=== PATIENT | female | born 1960 | race Caucasian/White ===

== ENCOUNTER 2016-06-08 20:28 | Inpatient (IN) | payer MEDICARE, OTHER ==
[~2016-06-08] VITALS: Ht 154.9 cm; Wt 78.9 kg
[2016-06-08] MEDS ORDERED: ZYLOPRIM 100 M100 MG PO (22:06)
[2016-06-08] MEDS ORDERED: COREG 3.125M3.125 MG PO (22:07)
[2016-06-08] MEDS ORDERED: ELAVIL 50 MG TA50 MG PO (22:07)
[2016-06-08] MEDS ORDERED: ASPIRIN325 MG PO (22:07)
[2016-06-08] MEDS ORDERED: DEXILANT60 MG PO (22:09)
[2016-06-08] MEDS ORDERED: DICLOFENAC SODI50 MG PO (22:09)
[2016-06-08] MEDS ORDERED: LASIX 40 MG TAB40 MG PO (22:10)
[2016-06-08] MEDS ORDERED: PROTONIX 40 MG40 M1 PO (22:15)
[2016-06-08] MEDS ORDERED: NITROSTAT0.4 MG SL (22:15)
[2016-06-08] MEDS ORDERED: K-DUR TAB 10 M10 MEQ PO (22:16)
[2016-06-08] MEDS ORDERED: KLOR-CON M2020 MEQ PO (22:16)
[2016-06-08] MEDS ORDERED: ZOLOFT100 MG PO (22:17)
[2016-06-08] MEDS ORDERED: ZANTAC 150 MG150 MG PO (22:17)
[2016-06-08] MEDS ORDERED: ZOCOR40 MG PO (22:17)
[2016-06-08] MEDS ORDERED: DIOVAN 80 MG TA80 MG PO (22:18)
[2016-06-08 23:24] LABS: HEMOGLOBIN 9.3 gm/dl (12.3-15.3); RED BLOOD COUNT 3.24 M/UL (4.00-5.10); WHITE BLOOD COUNT 13.3 K/UL (4.5-11.0)
[2016-06-09 04:03] LABS: HEMOGLOBIN 9.6 gm/dl (12.3-15.3); RED BLOOD COUNT 3.32 M/UL (4.00-5.10); WHITE BLOOD COUNT 13.8 K/UL (4.5-11.0)
[2016-06-10 03:39] LABS: HEMOGLOBIN 10.1 gm/dl (12.3-15.3); RED BLOOD COUNT 3.51 M/UL (4.00-5.10); WHITE BLOOD COUNT 13.3 K/UL (4.5-11.0)
[2016-06-12 04:18] LABS: HEMOGLOBIN 9.5 gm/dl (12.3-15.3); RED BLOOD COUNT 3.34 M/UL (4.00-5.10); WHITE BLOOD COUNT 13.4 K/UL (4.5-11.0)
[2016-06-12 04:38] LABS: BUN/CREATININE RATIO 13 (0-10)
[2016-06-12] MEDS ORDERED: LISINOPRIL2.5 MG PO (14:28)
[2016-06-12] MEDS ORDERED: LASIX20 MG PO (14:29)
[2016-06-12] MEDS ORDERED: POTASSIUM CHLO10 MEQ PO (14:30)
[2016-06-12] MEDS ORDERED: ASPIRIN81 MG PO (14:34)
== END 2016-06-12 15:35 | disposition home or self-care (01) | DRG 682 ==
LOC: MED SURG 4 20:34 → CCU 21:32 → M/S 21:32
PROVIDERS: ADMIT Family Medicine
DX: N17.9 Acute kidney failure, unspecified (principal); R57.0 Cardiogenic shock; R57.1 Hypovolemic shock; E87.2 Acidosis; R65.10 Systemic inflammatory response syndrome (SIRS) of non-infectious origin without acute organ dysfunction; A04.7 Enterocolitis due to Clostridium difficile; I50.22 Chronic systolic (congestive) heart failure; I25.10 Atherosclerotic heart disease of native coronary artery without angina pectoris; I25.5 Ischemic cardiomyopathy; M10.9 Gout, unspecified; K21.9 Gastro-esophageal reflux disease without esophagitis; M19.90 Unspecified osteoarthritis, unspecified site; I10 Essential (primary) hypertension; E78.5 Hyperlipidemia, unspecified; F32.9 Major depressive disorder, single episode, unspecified; F41.9 Anxiety disorder, unspecified; G89.29 Other chronic pain; M79.7 Fibromyalgia; R73.9 Hyperglycemia, unspecified; K66.0 Peritoneal adhesions (postprocedural) (postinfection); K59.09 Other constipation; E87.6 Hypokalemia; I95.2 Hypotension due to drugs; T44.7X5A Adverse effect of beta-adrenoreceptor antagonists, initial encounter; Z90.710 Acquired absence of both cervix and uterus; Z82.49 Family history of ischemic heart disease and other diseases of the circulatory system
CPT/HCPCS: ECHO; 36415; 71010; 74000; 80048; 80053; 80202; 82550; 82553; 83036; 83605; 83880; 84132; 84439; 84443; 84484; 85025; 85027; 86140; 87040; 87086; 93005; 93306; J0696; J3370; J7030; J7050; J7070; Q0162

== ENCOUNTER 2021-04-04 15:17 | Inpatient (IN) | payer MEDICARE, OTHER ==
[~2021-04-04] VITALS: Ht 152.4 cm; Wt 54.1 kg
[~2021-04-04 15:17] MED LIST: ASPIRIN325 MG PO; ASPIRIN81 MG PO; COREG 12.5MG12.5 MG PO; DEXILANT60 MG PO; DICLOFENAC SODI50 MG PO; DIOVAN 80 MG TA80 MG PO; ELAVIL 50 MG TA50 MG PO; K-DUR TAB 10 M10 MEQ PO; KLOR-CON M2020 MEQ PO; LASIX 40 MG TAB40 MG PO; LASIX40 MG PO; LISINOPRIL2.5 MG PO; NITROSTAT0.4 MG SL; POTASSIUM CHLO10 MEQ PO; PROTONIX 40 MG40 M1 PO; ZANTAC 150 MG150 MG PO; ZOCOR40 MG PO; ZOLOFT100 MG PO; ZYLOPRIM 100 M100 MG PO
[2021-04-04 15:47] LABS: HEMOGLOBIN 11.6 gm/dl (12.3-15.3); RED BLOOD COUNT 4.48 M/UL (4.00-5.10)
[2021-04-04 16:11] LABS: BUN/CREATININE RATIO 15 (0-10)
[2021-04-05 03:16] LABS: HEMOGLOBIN 10.3 gm/dl (12.3-15.3)
[2021-04-05 03:33] LABS: RED BLOOD COUNT 4.02 M/UL (4.00-5.10); WHITE BLOOD COUNT 7.9 K/UL (4.5-11.0)
[2021-04-05 03:46] LABS: BUN/CREATININE RATIO 18 (0-10)
[2021-04-05] MEDS ORDERED: CYCLOBENZAPRINE10 MG PO (11:17)
[2021-04-05] MEDS ORDERED: BUSPAR 10MG10 MG PO (11:17)
[2021-04-05] MEDS ORDERED: CRESTOR20 MG PO (11:18)
[2021-04-05] MEDS ORDERED: XARELTO20 MG PO (11:18)
[2021-04-05] MEDS ORDERED: TRAZODONE HCL50 MG PO (11:18)
[2021-04-05] MEDS ORDERED: ZOFRAN ODT 4 MG4 MG PO (11:19)
[2021-04-05] MEDS ORDERED: ENTRESTO 49 MG1 EACH PO (11:19)
[2021-04-05] MEDS ORDERED: ALBUTEROL2.5 MG/3 M INH (11:20)
[2021-04-05] MEDS ORDERED: RISAQUAD PO (11:20)
[2021-04-06 03:22] LABS: RED BLOOD COUNT 3.95 M/UL (4.00-5.10)
[2021-04-06 03:28] LABS: WHITE BLOOD COUNT 10.1 K/UL (4.5-11.0)
[2021-04-07 02:47] LABS: HEMOGLOBIN 10.6 gm/dl (12.3-15.3); RED BLOOD COUNT 4.18 M/UL (4.00-5.10)
[2021-04-07 03:20] LABS: BUN/CREATININE RATIO 23 (0-10)
[2021-04-07 15:10] LABS: LDH, BODY FLUID 145 U/L; TOTAL PROTEIN, BODY FLUID 2.8 gm/dL
[2021-04-07 15:18] LABS: BODY FLUID SOURCE PLEURAL
[2021-04-07 15:19] LABS: MONONUCLEAR CELLS 85.1 (75-100); POLYMORPHONUCLEAR % 14.9 (0-25); RBC (AUTOMATED) 84800 (0-100000); WBC (AUTOMATED) 261 (0-500)
[2021-04-08 03:21] LABS: HEMOGLOBIN 10.6 gm/dl (12.3-15.3); RED BLOOD COUNT 4.15 M/UL (4.00-5.10); WHITE BLOOD COUNT 5.7 K/UL (4.5-11.0)
[2021-04-08 03:55] LABS: BUN/CREATININE RATIO 23 (0-10)
[2021-04-08] MEDS ORDERED: OMNICEF 300 MG300 MG PO (15:50)
[2021-04-08 22:03] LABS: ACINETOBACTER BAUMANNII Not Detected (Negative); CANDIDA ALBICANS Not Detected (Negative); CANDIDA KRUSEI Not Detected (Negative); CANDIDA TROPICALIS Not Detected (Negative); ENTEROCOCCUS Not Detected (Negative); ESCHERICHIA COLI Not Detected (Negative); HAEMOPHILUS INFLUENZAE Not Detected (Negative); KLEBSIELLA OXYTOCA Not Detected (Negative); KLEBSIELLA PNEUMONIAE Not Detected (Negative); KPC-CARBAPENEM-RESISTANCE GENE Not Detected (Negative); PROTEUS Not Detected (Negative); PSEUDOMONAS AERUGINOSA Not Detected (Negative); SERRATIA MARCESANS Not Detected (Negative); STAPHYLOCOCCUS AUREUS Not Detected (Negative); STREP AGALACTIAE (GROUP B) Not Detected (Negative); STREP PYOGENES (GROUP A) Not Detected (Negative); STREPTOCOCCUS Not Detected (Negative); mecA (METHICILLIN RESIST GENE Not Detected (Negative); vanA/B (VANCOMYCIN RESIST GENE Not Detected (Negative)
[2021-04-09 03:11] LABS: STAPHYLOCOCCUS DETECTED (Negative)
== END 2021-04-08 17:00 | disposition home or self-care (01) | DRG 871 ==
LOC: ER1 15:17 → PROG CARE 19:05 → CDU 19:05 → PROG CARE 04-05 22:53
PROVIDERS: Emergency Medicine; Family Medicine; Internal Medicine; ADMIT Internal Medicine
PROC: 0W9B3ZZ Drainage of Left Pleural Cavity, Percutaneous Approach (ICD-10-PCS; principal; 2021-04-07)
DX: A41.9 Sepsis, unspecified organism (principal); I50.23 Acute on chronic systolic (congestive) heart failure; J18.9 Pneumonia, unspecified organism; J96.01 Acute respiratory failure with hypoxia; G93.41 Metabolic encephalopathy; E87.2 Acidosis; I48.20 Chronic atrial fibrillation, unspecified; I48.92 Unspecified atrial flutter; Z20.822 Contact with and (suspected) exposure to COVID-19; K21.9 Gastro-esophageal reflux disease without esophagitis; F32.A Depression, unspecified; M19.91 Primary osteoarthritis, unspecified site; M54.9 Dorsalgia, unspecified; R73.9 Hyperglycemia, unspecified; F41.9 Anxiety disorder, unspecified; M79.7 Fibromyalgia; G89.29 Other chronic pain; I25.10 Atherosclerotic heart disease of native coronary artery without angina pectoris; I11.0 Hypertensive heart disease with heart failure; R56.9 Unspecified convulsions; R65.20 Severe sepsis without septic shock; I25.5 Ischemic cardiomyopathy; E78.5 Hyperlipidemia, unspecified; R91.8 Other nonspecific abnormal finding of lung field; Z95.5 Presence of coronary angioplasty implant and graft; Z95.0 Presence of cardiac pacemaker; Z95.810 Presence of automatic (implantable) cardiac defibrillator; Z90.49 Acquired absence of other specified parts of digestive tract; Z90.710 Acquired absence of both cervix and uterus; Z98.890 Other specified postprocedural states; Z82.49 Family history of ischemic heart disease and other diseases of the circulatory system; Z80.3 Family history of malignant neoplasm of breast; Z83.6 Family history of other diseases of the respiratory system; Z79.899 Other long term (current) drug therapy; I25.2 Old myocardial infarction; Z79.82 Long term (current) use of aspirin; Z79.01 Long term (current) use of anticoagulants
CPT/HCPCS: ECHO; 36415; 36600; 70450; 70496; 70498; 71045; 71275; 74018; 80053; 80307; 81001; 82009; 82140; 82550; 82553; 82803; 82945; 82962; 83605; 83615; 83735; 83874; 83880; 83986; 84100; 84157; 84439; 84443; 84484; 85025; 85027; 86140; 87040; 87070; 87077; 87150; 87186; 87205; 89051; 93005; 93306; 94760; 96372; 96374; 96375; 96376; 99285; G0480; J0456; J0696; J1160; J1650; J1940; J2060; J2310; J2405; J2550; J7030; J7070; Q9965; Q9967; U0002

== ENCOUNTER → 2021-05-12 | Outpatient (CLI) | payer MEDICARE, OTHER ==
[~2021-05-12] MED LIST changes: +ALBUTEROL2.5 MG/3 M INH; +BUSPAR 10MG10 MG PO; +CRESTOR20 MG PO; +CYCLOBENZAPRINE10 MG PO; +ENTRESTO 49 MG1 EACH PO; +OMNICEF 300 MG300 MG PO; +RISAQUAD PO; +TRAZODONE HCL50 MG PO; +XARELTO20 MG PO; +ZOFRAN ODT 4 MG4 MG PO
== END ==
LOC: EXRD 11:58
DX: J90 Pleural effusion, not elsewhere classified (principal)
CPT/HCPCS: 71046

== ENCOUNTER → 2021-05-27 | Outpatient (CLI) | payer MEDICARE, OTHER | LOC: KOH-I 15:51 | DX: J90 Pleural effusion, not elsewhere classified (principal); K86.89 Other specified diseases of pancreas | CPT/HCPCS: 71250 ==